=== PATIENT | female | born 1925 | race Caucasian/White ===

== ENCOUNTER 2017-03-30 07:40 | Inpatient (IN) | payer MEDICARE, BC ==
[~2017-03-30] VITALS: Ht 154.9 cm; Wt 71.6 kg
[~2017-03-30 07:40] MED LIST: CARAFATE PO; NEXIUM PO; NORVASC 10MG10 MG PO; PREDNISONE20 MG PO; PRILOSEC 20MG20 MG PO; SYNTHROID0.075 MG/T PO; TENORETIC; TENORMIN100 MG PO; TIMOLOL MALEATE5 M1 OU; XALATAN EYE DROPS OD; [UNRECOGNIZED DRUG - OTHER] PO
[2017-03-30 08:04] LABS: BASO % 0.3 % (0.0-2.0); EOS % 0.3 % (0-4.0); GRAN % 86.1 % (42.2-75.2); HEMATOCRIT 42.1 % (37.0-47.0); HEMOGLOBIN 14.2 g/dl (12.5-16.0); LYMPH % 7.1 % (20.0-51.0); MEAN CELL VOLUME 89 fl (80.0-100.0); MEAN CORPUSCULAR HEMOGLOBIN 30 pg (27.0-31.0); MEAN CORPUSCULAR HGB CONC 34 g/dl (33.0-37.0); MEAN PLATELET VOLUME 10.5 fl (7.4-10.4); MONO # 0.8 (0.1-0.6); MONO % 5.9 % (1.7-9.3); PLATELET COUNT 244 K/mm3 (130-400); RED BLOOD COUNT 4.74 M/mm3 (4.10-5.30); REDCELL DISTRIBUTION WIDTH-CV 13.3 % (11.5-14.5); WHITE BLOOD COUNT 13.9 K/mm3 (4.8-10.8)
[2017-03-30 08:16] LABS: PROTHROMBIN TIME 11.5 SECONDS (9.7-12.8)
[2017-03-30 08:19] LABS: ADJUSTED CALCIUM 9.8 mg/dL (8.4-10.2); ALANINE AMINOTRANSFERASE 31 U/L (9-52); ALBUMIN 4.1 gm/dL (3.5-5.0); ALKALINE PHOSPHATASE 65 U/L (50-136); ANION GAP 11 mmol/L (7-16); BILIRUBIN,TOTAL 0.6 mg/dL (0.0-1.0); BLOOD UREA NITROGEN 14 mg/dL (7-17); CALCIUM 9.9 mg/dL (8.4-10.2); CARBON DIOXIDE 25 mmol/L (22-30); CHLORIDE 98 mmol/L (98-107); CREATININE, serum 0.77 mg/dL (0.52-1.25); GLUCOSE 129 mg/dL (74-106); LIPASE 94 U/L (23-300); PARTIAL THROMBOPLASTIN TIME 26.9 SECONDS (26.0-37.0); POTASSIUM 3.7 mmol/L (3.4-5.0); SODIUM 134 mmol/L (137-145); TOTAL PROTEIN 7.1 gm/dL (6.4-8.2)
[2017-03-30 08:21] LABS: C-REACTIVE PROTEIN < 0.5 mg/dL (0.0-0.9)
[2017-03-30 08:28] LABS: B-TYPE NATRIURETIC PEPTIDE 412 pg/mL (0-450); TROPONIN-I < 0.012 ng/mL (0.000-0.034)
[2017-03-30 09:42] LABS: PH 5 (5-8); URINE APPEARANCE Hazy; URINE BACTERIA Rare /hpf; URINE BILIRUBIN Negative (NEGATIVE); URINE BLOOD Negative (NEGATIVE); URINE COLOR Yellow; URINE GLUCOSE Negative (NEGATIVE); URINE KETONE Negative (NEGATIVE); URINE UROBILINOGEN Negative (NEGATIVE)
[2017-03-30 09:44] LABS: URINE WBC 20-50 /hpf
[2017-03-30 16:12] VITALS: BP 137/64; PULSE 88; TEMP 98.2
[2017-03-30 17:22] VITALS: BP 148/74; PULSE 91; TEMP 97.6
[2017-03-30 18:36] LABS: CHOLESTEROL 260 mg/dL (120-200); HDL CHOLESTEROL 45 mg/dL; LDL CHOLESTEROL 193 mg/dL; TRIGLYCERIDE 111 mg/dL
[2017-03-30 19:39] VITALS: BP 149/62; PULSE 87; TEMP 98.6
[2017-03-30 22:41] VITALS: BP 140/62; PULSE 92; TEMP 98.3
[2017-03-31] VITALS (378 sets, daily range): BP systolic 109–136; BP diastolic 55–57; PULSE 71–88; TEMP 97.9–99.6; O2SAT 87–97
[2017-03-31 07:54] LABS: HEMATOCRIT 39.1 % (37.0-47.0); HEMOGLOBIN 13.2 g/dl (12.5-16.0); MEAN CELL VOLUME 90 fl (80.0-100.0); MEAN CORPUSCULAR HEMOGLOBIN 30 pg (27.0-31.0); MEAN CORPUSCULAR HGB CONC 34 g/dl (33.0-37.0); MEAN PLATELET VOLUME 11.5 fl (7.4-10.4); PLATELET COUNT 206 K/mm3 (130-400); RED BLOOD COUNT 4.37 M/mm3 (4.10-5.30); REDCELL DISTRIBUTION WIDTH-CV 13.6 % (11.5-14.5); WHITE BLOOD COUNT 16.1 K/mm3 (4.8-10.8)
[2017-03-31 07:55] LABS: ADD PATHOLOGY DIFF REVIEW NO
[2017-03-31 08:39] LABS: BAND 2 % (0-10); NEUTROPHILS 87 % (42.0-75.2); PLATELET ESTIMATE NORMAL (NORMAL); TOTAL CELLS COUNTED 100
[2017-03-31 10:26] LABS: ADJUSTED CALCIUM 9.3 mg/dL (8.4-10.2); BILIRUBIN,TOTAL 0.8 mg/dL (0.0-1.0); CALCIUM 8.5 mg/dL (8.4-10.2); CREATININE, serum 0.73 mg/dL (0.52-1.25); POTASSIUM 3.5 mmol/L (3.4-5.0); TOTAL PROTEIN 5.8 gm/dL (6.4-8.2)
[2017-04-01] VITALS (1036 sets, daily range): BP systolic 100–149; BP diastolic 46–66; PULSE 66–95; TEMP 97.8–98.6; O2SAT 87–97
[2017-04-01 06:25] LABS: BASO # 0.1 (0.0-0.2); BASO % 0.4 % (0.0-2.0); EOS # 0.1 (0.0-0.7); EOS % 0.5 % (0-4.0); GRAN # 9.7 (1.4-6.5); GRAN % 82.6 % (42.2-75.2); HEMATOCRIT 40.4 % (37.0-47.0); HEMOGLOBIN 13.4 g/dl (12.5-16.0); LYMPH # 0.9 (1.2-3.4); LYMPH % 7.4 % (20.0-51.0); MEAN CELL VOLUME 92 fl (80.0-100.0); MEAN CORPUSCULAR HEMOGLOBIN 30 pg (27.0-31.0); MEAN CORPUSCULAR HGB CONC 33 g/dl (33.0-37.0); MEAN PLATELET VOLUME 10.9 fl (7.4-10.4); MONO % 8.8 % (1.7-9.3); PLATELET COUNT 200 K/mm3 (130-400); RED BLOOD COUNT 4.41 M/mm3 (4.10-5.30); WHITE BLOOD COUNT 11.7 K/mm3 (4.8-10.8)
[2017-04-01 06:41] LABS: ADJUSTED CALCIUM 9.3 mg/dL (8.4-10.2); ALBUMIN 3.2 gm/dL (3.5-5.0); BILIRUBIN,TOTAL 1.2 mg/dL (0.0-1.0); CALCIUM 8.7 mg/dL (8.4-10.2); CREATININE, serum 0.78 mg/dL (0.52-1.25); TOTAL PROTEIN 6.2 gm/dL (6.4-8.2)
[2017-04-01 12:26] LABS: MAGNESIUM 2.2 mg/dL (1.6-2.3)
[2017-04-02 04:13] VITALS: BP 134/84; PULSE 101; TEMP 98.6
[2017-04-02 07:22] LABS: CALCIUM 8.8 mg/dL (8.4-10.2); CREATININE, serum 0.67 mg/dL (0.52-1.25); MAGNESIUM 2.1 mg/dL (1.6-2.3); PHOSPHOROUS 2.2 mg/dL (2.5-4.5); POTASSIUM 3.8 mmol/L (3.4-5.0)
[2017-04-02 10:38] VITALS: BP 131/57; PULSE 83; TEMP 97.9
[2017-04-02 14:14] VITALS: BP 126/65; PULSE 96; TEMP 98.1
[2017-04-02 18:22] VITALS: BP 137/68; PULSE 105; TEMP 98
[2017-04-02 20:47] VITALS: BP 127/64; PULSE 98; TEMP 97.9
[2017-04-02 23:47] VITALS: BP 148/68; PULSE 101; TEMP 97.9
[2017-04-03 05:26] VITALS: BP 131/66; PULSE 99; TEMP 98
[2017-04-03 06:57] LABS: BASO # 0.1 (0.0-0.2); BASO % 0.6 % (0.0-2.0); EOS # 0.3 (0.0-0.7); EOS % 3.1 % (0-4.0); GRAN # 6.6 (1.4-6.5); GRAN % 75.2 % (42.2-75.2); HEMATOCRIT 40.8 % (37.0-47.0); HEMOGLOBIN 13.8 g/dl (12.5-16.0); LYMPH # 0.9 (1.2-3.4); LYMPH % 10.3 % (20.0-51.0); MEAN CELL VOLUME 89 fl (80.0-100.0); MEAN CORPUSCULAR HEMOGLOBIN 30 pg (27.0-31.0); MEAN CORPUSCULAR HGB CONC 34 g/dl (33.0-37.0); MEAN PLATELET VOLUME 11.5 fl (7.4-10.4); MONO # 0.9 (0.1-0.6); MONO % 10.3 % (1.7-9.3); PLATELET COUNT 197 K/mm3 (130-400); RED BLOOD COUNT 4.59 M/mm3 (4.10-5.30); REDCELL DISTRIBUTION WIDTH-CV 13.4 % (11.5-14.5); WHITE BLOOD COUNT 8.8 K/mm3 (4.8-10.8)
[2017-04-03 07:04] LABS: ADJUSTED CALCIUM 9.3 mg/dL (8.4-10.2); ALBUMIN 3.2 gm/dL (3.5-5.0); BILIRUBIN,TOTAL 0.5 mg/dL (0.0-1.0); CALCIUM 8.7 mg/dL (8.4-10.2); CREATININE, serum 0.61 mg/dL (0.52-1.25); TOTAL PROTEIN 6.4 gm/dL (6.4-8.2)
[2017-04-03 09:49] VITALS: BP 121/64; PULSE 86; TEMP 97.4
[2017-04-03 13:51] VITALS: BP 132/63; PULSE 96; TEMP 97.7
[2017-04-03 18:13] VITALS: BP 133/66; PULSE 94
[2017-04-03 23:14] VITALS: BP 152/69; PULSE 109; TEMP 98.5
[2017-04-04 01:13] VITALS: BP 133/71; PULSE 103; TEMP 97.9
[2017-04-04 05:17] VITALS: BP 137/62; PULSE 94; TEMP 97.9
[2017-04-04 09:53] VITALS: BP 141/66; PULSE 78; TEMP 97.6
[2017-04-04 12:31] VITALS: BP 142/61; PULSE 75; TEMP 97.6
[2017-04-04 14:37] LABS: PH 7 (5-8); SQUAMOUS EPITHELIAL 0-2 /hpf; URINE APPEARANCE Hazy; URINE BACTERIA None Seen /hpf; URINE BILIRUBIN Negative (NEGATIVE); URINE BLOOD 3+ (NEGATIVE); URINE COLOR Amber; URINE GLUCOSE Negative (NEGATIVE); URINE KETONE Negative (NEGATIVE); URINE UROBILINOGEN Negative (NEGATIVE)
[2017-04-04 17:10] VITALS: BP 130/68; PULSE 75; TEMP 98.1
[2017-04-04 22:12] VITALS: BP 127/58; PULSE 80; TEMP 98
[2017-04-05 01:17] VITALS: BP 122/54; PULSE 78; TEMP 98.7
[2017-04-05 05:30] VITALS: BP 133/61; PULSE 81; TEMP 98.7
[2017-04-05 09:30] VITALS: BP 132/51; PULSE 67; TEMP 97.8
[2017-04-05 10:57] LABS: PH 6 (5-8); SQUAMOUS EPITHELIAL 0-2 /hpf; URINE APPEARANCE Clear; URINE BACTERIA None Seen /hpf; URINE BILIRUBIN Negative (NEGATIVE); URINE BLOOD Negative (NEGATIVE); URINE COLOR Straw; URINE GLUCOSE Negative (NEGATIVE); URINE KETONE Negative (NEGATIVE); URINE RBC 0-2 /hpf; URINE UROBILINOGEN Negative (NEGATIVE); URINE WBC 0-2 /hpf
[2017-04-05 13:48] VITALS: BP 138/61; PULSE 68; TEMP 98.5
[2017-04-05 17:47] VITALS: BP 169/66; PULSE 69; TEMP 97.5
[2017-04-05 22:13] VITALS: BP 120/54; PULSE 74; TEMP 97.7
[2017-04-06 05:15] VITALS: BP 138/58; PULSE 66; TEMP 99.1
[2017-04-06] MEDS ORDERED: PROTONIX 40MG T40 MG PO (07:53)
[2017-04-06] MEDS ORDERED: PROBIOTIC ACID1 EAC3 PO (09:29)
[2017-04-06] MEDS ORDERED: AMOXICILLIN 8751 TAB PO (09:30)
== END 2017-04-06 11:15 | disposition home or self-care (01) | DRG 392 ==
LOC: COL.ER 07:40 → MEDICAL 10:21 → ICU 03-31 09:00 → MEDICAL 03-31 09:00 → ICU 03-31 15:16 → SURG 04-01 22:55
PROVIDERS: Emergency Medicine; Family Medicine; Internal Medicine; Physician Assistant; Surgery
PROC: 02HV33Z Insertion of Infusion Device into Superior Vena Cava, Percutaneous Approach (ICD-10-PCS; principal; 2017-04-01)
DX: K57.00 Diverticulitis of small intestine with perforation and abscess without bleeding (principal); N39.0 Urinary tract infection, site not specified; E87.1 Hypo-osmolality and hyponatremia; Z66 Do not resuscitate; I10 Essential (primary) hypertension; B96.5 Pseudomonas (aeruginosa) (mallei) (pseudomallei) as the cause of diseases classified elsewhere
CPT/HCPCS: 99223-AI; 99232-AI; 99233-AI; 99239; C1751; C1894; C9113; G0378; J0696; J1450; J1644; J1650; J2270; J2405; J2543; J3480; J7030; J7050; Q9967

== ENCOUNTER → 2017-04-21 | Outpatient (CLI) | payer MEDICARE, BC ==
[~2017-04-21] MED LIST changes: +AMOXICILLIN 8751 TAB PO; +PROBIOTIC ACID1 EAC3 PO; +PROTONIX 40MG T40 MG PO
[2017-04-21 10:41] LABS: BASO # 0.1 (0.0-0.2); BASO % 1.3 % (0.0-2.0); EOS # 0.3 (0.0-0.7); EOS % 5.6 % (0-4.0); GRAN # 3.8 (1.4-6.5); GRAN % 62.3 % (42.2-75.2); HEMATOCRIT 39.4 % (37.0-47.0); HEMOGLOBIN 13.4 g/dl (12.5-16.0); LYMPH # 1.2 (1.2-3.4); LYMPH % 20.6 % (20.0-51.0); MEAN CELL VOLUME 89 fl (80.0-100.0); MEAN CORPUSCULAR HEMOGLOBIN 30 pg (27.0-31.0); MEAN CORPUSCULAR HGB CONC 34 g/dl (33.0-37.0); MEAN PLATELET VOLUME 11.2 fl (7.4-10.4); MONO # 0.6 (0.1-0.6); PLATELET COUNT 234 K/mm3 (130-400); RED BLOOD COUNT 4.41 M/mm3 (4.10-5.30)
[2017-04-21 10:48] LABS: ADJUSTED CALCIUM 9.3 mg/dL (8.4-10.2); ALBUMIN 3.8 gm/dL (3.5-5.0); BILIRUBIN,TOTAL 0.8 mg/dL (0.0-1.0); CALCIUM 9.1 mg/dL (8.4-10.2); CREATININE, serum 0.73 mg/dL (0.52-1.25); POTASSIUM 3.6 mmol/L (3.4-5.0); TOTAL PROTEIN 6.4 gm/dL (6.4-8.2)
== END ==
LOC: COL.RAD 09:43
PROVIDERS: Surgery
DX: K57.00 Diverticulitis of small intestine with perforation and abscess without bleeding (principal); I70.0 Atherosclerosis of aorta; I72.2 Aneurysm of renal artery; I51.7 Cardiomegaly; R09.89 Other specified symptoms and signs involving the circulatory and respiratory systems; K44.9 Diaphragmatic hernia without obstruction or gangrene; K86.2 Cyst of pancreas
CPT/HCPCS: Q9967